=== PATIENT | female | born 1960 | race American Indian/Alaskan Native ===

== ENCOUNTER 2021-03-14 09:47 | Outpatient (CLI) | payer OTHER ==
--- NOTE | 2021-03-14 12:59 | Fluoroscopy Report ---
BARIUM ENEMA INDICATION / CLINICAL INFORMATION: COLON CANCER SCREENING TECHNIQUE: Routine double contrast barium enema was attempted. Fluoroscopy time: 2 minutes. Fluoroscopy images: None. COMPARISON: None available. FINDINGS: Accounts Payable Supervisor view demonstrates no acute abnormality. Examination was terminated prematurely due to patient d iscomfort following only a minimal amount of contrast administered via rectal tube. Signer Name: Lai Kemp MD Signed: 03/14/2021 12:55 PM Workstation Name: [id number]
== END 2021-03-14 09:48 | disposition home or self-care (01) ==
LOC: EDSEX 09:47 → FLUORO 09:47
PROVIDERS: ATTEND Internal Medicine Gastroenterology
DX: Z12.11 Encounter for screening for malignant neoplasm of colon (principal)
CPT/HCPCS: 74280

== ENCOUNTER 2021-09-23 01:12 | Emergency (ER) | payer OTHER ==
--- NOTE | 2021-09-23 02:41 | XRay Report ---
LEFT FOOT 2 VIEWS. INDICATION / CLINICAL INFORMATION: foot pain COMPARISON: Left ankle same date. FINDINGS: BONES / JOINT(S): No acute fracture or subluxation. Mild narrowing of interphalangeal joint spaces. SOFT TISSUES: No significant abnormality. ADDITIONAL FINDINGS: Bimalleolar ankle fracture better visualized on comparison study. IMPRESSION: 1. No acute findings involving the left foot. Signer Name: Curtis Almendarez II, MD Signed: 09/23/2021 2:36 AM Workstation Name: [id number]
--- NOTE | 2021-09-23 02:42 | XRay Report ---
LEFT ANKLE 3 VIEW(S) INDICATION / CLINICAL INFORMATION: lt ankle pain foot pain COMPARISON: None available. FINDINGS: BONES / JOINT(S): Acute bimalleolar fracture of the left ankle demonstrated with moderate lateral tra nslation of the talus within the tibiotalar joint. Articular surface of the talar dome appears intact . No obvious fracture of the posterior malleolus of the tibia. No significant arthritis. SOFT TISSUES: Bimalleolar soft tissue swelling. ADDITIONAL FINDINGS: None. IMPRESSION: Acute bimalleolar fracture left ankle with moderate lateral translation of the talus within the tibio talar joint. Signer Name: Curtis Almendarez II, MD Signed: 09/23/2021 2:37 AM Workstation Name: [id number]
--- NOTE | 2021-09-23 04:14 | Emergency Department Report ---
ED Lower Extremity HPI - General Chief Complaint: Extremity Injury, Lower Stated Complaint: ANKLE INJURY Source: patient, family Mode of arrival: Wheelchair Limitations: Physical Limitation - History of Present Illness Initial Comments: 61-year-old female presents to the ED via ambulance with left ankle pain after slipping and falling while walking up a flight of stairs. Patient stated that when she made to last step she slipped and fell at home. Patient has obvious swelling to the left ankle. Pedal pulses intact. Patient has splint in place applied by EMS. Patient denies any pain at present. Fall was witnessed by her . Patient is alert and oriented x3. No acute distress noted no ill appearance. MD Complaint: ankle injury Onset/Timin -: hour(s) Injury: Ankle: Left Place: home Severity scale (0 -10): 0 Improves With: immobilization Context: fall Associated Symptoms: swelling, unable to bear weight Treatments Prior to Arrival: splint - Related Data Previous Rx's Medication Instructions Recorded Last Taken Type Acetaminophen/Codeine [Tylenol 1 tab PO Q6H PRN 3 Days #12 tab 09/23/21 Unknown Rx /Codeine # 3 tab] Allergies Allergy/AdvReac Type Severity Reaction Status Date / Time No Known Allergies Allergy Verified 09/23/21 04:05 ED Review of Systems ROS: Stated complaint: ANKLE INJURY Other details as noted in HPI Constitutional: denies: chills, fever Eyes: denies: eye pain, eye discharge, vision change ENT: denies: ear pain, throat pain Respiratory: denies: cough, shortness of breath, wheezing Cardiovascular: denies: chest pain, palpitations Endocrine: no symptoms reported Gastrointestinal: denies: abdominal pain, nausea, diarrhea Genitourinary: denies: urgency, dysuria, discharge Musculoskeletal: joint swelling. denies: back pain, arthralgia Skin: denies: rash, lesions Neurological: denies: headache, weakness, paresthesias Psychiatric: denies: anxiety, depression Hematological/Lymphatic: denies: easy bleeding, easy bruising ED Past Medical Hx - Social History Smoking Status: Never Smoker - Medications Home Medications: Home Medications Medication Instructions Recorded Confirmed Last Taken Type Acetaminophen/Codeine [Tylenol 1 tab PO Q6H PRN 3 Days #12 tab 09/23/21 Unknown Rx /Codeine # 3 tab] ED Physical Exam - General Limitations: Physical Limitation General appearance: alert, in no apparent distress - Head Head exam: Present: atraumatic, normocephalic - Eye Eye exam: Present: normal appearance - ENT ENT exam: Present: mucous membranes moist - Neck Neck exam: Present: normal inspection - Respiratory Respiratory exam: Present: normal lung sounds bilaterally. Absent: respiratory distress - Cardiovascular Cardiovascular Exam: Present: regular rate, normal rhythm. Absent: systolic murmur, diastolic murmur, rubs, gallop - GI/Abdominal GI/Abdominal exam: Present: soft, normal bowel sounds - Extremities Exam Extremities exam: Present: normal inspection - Expanded Lower Extremity Exam Left Ankle exam: Present: tenderness, swelling. Absent: ecchymosis, deformity, erythema - Back Exam Back exam: Present: normal inspection - Neurological Exam Neurological exam: Present: alert, oriented X3 - Psychiatric Psychiatric exam: Present: normal affect, normal mood - Skin Skin exam: Present: warm, dry, intact, normal color. Absent: rash ED Course Vital Signs 09/23/21 09/23/21 01:30 05:49 Temperature 98.4 F Pulse Rate 72 Respiratory 20 20 Rate Blood Pressure 136/74 Blood Pressure 138/72 [Right] O2 Sat by Pulse 99 Oximetry ED Lower Extremity MDM - Radiology Data [facility] [address] [place] [address] XRay Report Signed Patient: TAWANNA MEJIA MR#: [id number] : 1960 Acct:[id number] Age/Sex: 61 / F ADM Date: 09/23/21 Loc: ED Attending Dr: Ordering Physician: KYA GRAY Date of Service: 09/23/21 Procedure(s): XR ankle 3+V LT Accession Number(s): [id number] cc: KYA GRAY Fluoro Time In Minutes: LEFT ANKLE 3 VIEW(S) INDICATION / CLINICAL INFORMATION: lt ankle pain foot pain COMPARISON: None available. FINDINGS: BONES / JOINT(S): Acute bimalleolar fracture of the left ankle demonstrated with moderate lateral translation of the talus within the tibiotalar joint. Articular surface of the talar dome appears intact. No obvious fracture of the posterior malleolus of the tibia. No significant arthritis. SOFT TISSUES: Bimalleolar soft tissue swelling. ADDITIONAL FINDINGS: None. IMPRESSION: Acute bimalleolar fracture left ankle with moderate lateral translation of the talus within the tibiotalar joint. Signer Name: Charles Batista II, MD Signed: 09/23/2021 2:37 AM Workstation Name: [id number] Transcribed By: JONAH Dictated By: CHARLES BATISTA II, MD Electronically Authenticated By: CHARLES BATISTA II, MD Signed Date/Time: 09/23/21236 DD/ 5 - Medical Decision Making 61-year-old female presents to the ED via ambulance with left ankle pain after slipping and falling while walking up a flight of stairs. Patient stated that when she made to last step she slipped and fell at home. Patient has obvious swelling to the left ankle. Pedal pulses intact. Patient has splint in place applied by EMS. Patient denies any pain at present. Fall was witnessed by her . Patient is alert and oriented x3. No acute distress noted no ill appearance. Posterior leg splint applied to the left leg. Herndon 10 mg given PO . Rechecked the patient is resting quietly quietly and comfortable and feeling better. I discussed the results of diagnostic study, my clinical impression and the plan for further treatment with the patient. Patient agrees with plan and discharge at this present time. All question addressed. I have given the patient instruction regarding a diagnosis ,expectation ,follow- up and return precaution. I explained to the patient that emergent condition may arise and to return to the ED for new worsen and any new persisting condition. I have explained the importance of following up with the primary care physician or referral physician listed below has instructed. The patient verbalized understanding of discharge instruction. Critical care attestation.: If time is entered above; I have spent that time in minutes in the direct care of this critically ill patient, excluding procedure time. ED Disposition Clinical Impression: Ankle fracture, bimalleolar, closed Qualifiers: Encounter type: initial encounter Laterality: left Qualified Code(s): S82.842A - Displaced bimalleolar fracture of left lower leg, initial encounter for closed fracture Disposition: HOME / SELF CARE / HOMELESS Is pt being admited?: No Does the pt Need Aspirin: No Condition: Stable Instructions: Nondisplaced Bimalleolar Ankle Fracture Treated With Immobilization Additional Instructions: Follow-up with orthopedic Return to the ED for any worsening symptoms Take pain medication as needed Prescriptions: Acetaminophen/Codeine [Tylenol /Codeine # 3 tab] 1 tab PO Q6H PRN 3 Days #12 tab PRN Reason: Pain , Severe (7-10) Referrals: GARRY REGAN MD [Staff Physician] - 3-5 Days
[2021-09-23] MEDS ORDERED: HYDROcodone/ACETAMINOPHEN 10-325MG TAB PO ONE (05:30)
[2021-09-23 07:07] VITALS: BP 128/74
== END 2021-09-23 05:56 | disposition home or self-care (01) ==
LOC: ED 01:12
DX: S82.842A Displaced bimalleolar fracture of left lower leg, initial encounter for closed fracture (principal); W10.8XXA Fall (on) (from) other stairs and steps, initial encounter; Y93.89 Activity, other specified; Y92.89 Other specified places as the place of occurrence of the external cause; Y99.8 Other external cause status
CPT/HCPCS: 99283

== ENCOUNTER 2021-09-27 10:07 | Day surgery (SDC) | payer OTHER ==
[~2021-09-27 10:07] MED LIST: ACETAMINOPHEN 500 MG TAB PO SCH; CELECOXIB 200 MG CAP PO NR; GABAPENTIN 300 MG CAP PO NR; LACTATED RINGERS 1,000 ML IV SCH; MIDAZOLAM 2 MG/2 ML INJ IV NR; ceFAZolin/STERILE WATER 2 GM/20 ML SYRINGE IV NR
--- NOTE | 2021-09-27 11:21 | Anesthesia Consultation ---
Anesthesia Consult and Med Hx Date of service: 09/27/21 - Airway Anesthetic Teeth Evaluation: Good ROM Head & Neck: Adequate Mental/Hyoid Distance: Adequate Mallampati Class: Class I Intubation Access Assessment: Good - Pre-Operative Health Status ASA Pre-Surgery Classification: ASA2 Proposed Anesthetic Plan: General Nerve Block: adductor + politeal - Pulmonary Hx Smoking: Yes (quit 30yrs ago) Hx Respiratory Symptoms: No - Cardiovascular System Hx Hypertension: Yes (took amlodipine this morning) Hx Heart Attack/AMI: No Hx Percutaneous Transluminal Coronary Angioplasty (PTCA): No - Central Nervous System CVA: No - Endocrine Hx Renal Disease: No Hx Liver Disease: No Hx Insulin Dependent Diabetes: No Hx Non-Insulin Dependent Diabetes: No Hx Thyroid Disease: No - Additional Comments Anesthesia Medical History Comments: No hx anesthetic complications.
--- NOTE | 2021-09-27 11:22 | Anesthesia Day of Surgery ---
Anesthesia Day of Surgery - Day of Surgery Patient Examined: Yes Patient H&P Reviewed: Yes Patient is NPO: Yes
[2021-09-27] MEDS ORDERED: BUPIVACAINE/PF (0.25%) 2.5 MG/ML 30 ML VIAL INFILTRATI ONE (11:26)
[2021-09-27] MEDS ORDERED: dexAMETHasone 4 MG/ML VIAL ONE (11:26)
[2021-09-27] MEDS ORDERED: LIDOCAINE (1%) 10 MG/1 ML VIAL 20 ML MDV ONE (11:31)
[2021-09-27] MEDS: fentaNYL 100 MCG/2 ML INJ IV PRN ×2 (11:56→12:30)
[2021-09-27] MEDS ORDERED: propofoL 200 MG/20 ML VIAL IV ONE (12:57)
[2021-09-27] MEDS ORDERED: LIDOCAINE PF 100 MG/5 ML (CARDIAC SYRINGE) IV ONE (12:57)
[2021-09-27] MEDS ORDERED: dexAMETHasone 20 MG/5 ML VIAL ONE (12:57)
[2021-09-27] MEDS ORDERED: fentaNYL 100 MCG/2 ML INJ ONE (12:57)
[2021-09-27] MEDS ORDERED: ONDANSETRON 4 MG/2 ML INJ ONE (12:57)
[2021-09-27] MEDS ORDERED: PHENYLEPHRINE/NS 1,000 MCG/10 ML SYRINGE (OR USE) IV ONE (13:28)
[2021-09-27] MEDS ORDERED: SODIUM CHLORIDE 0.9% IRR 1,500 ML BOTTLE IR ONE (13:45)
[2021-09-27] MEDS ORDERED: KETOROLAC 30 MG/1 ML INJ ONE (14:30)
--- NOTE | 2021-09-27 14:40 | Procedure Note ---
Date of procedure: 09/27/21 Pre-op diagnosis: Displaced left bimalleolar ankle fracture Post-op diagnosis: same Procedure: Open reduction internal fixation left ankle fracture Procedure The patient was brought to the OR after having a femoral nerve block in preop holding for Postop pain management. The patient was placed on the OR table in supine position following induction and intubation the patient's left lower extremity was prepped and draped in the usual sterile manner. A timeout procedure was done to identify the patient and the correct operative site. The leg was then exsanguinated followed by inflation of the pneumatic tourniquet to 300 mmHg. A lateral incision was made over the distal fibula this is taken down sharply through skin and subcutaneous the fracture site was identified and using gentle manipulation the fracture fragments were reduced into a more anatomic position next a 6-hole one third semitubular plate was applied with screws of appropriate length and AP and lateral view was obtained and showed good reduction at the fracture and placement of the hardware. Next a curvlinear incision was made over the medial malleolus is then taken down sharply through skin and subcutaneous the fracture was identified and again using gentle manipulation I was held in place by way of a bone clamp next 2 small threaded K wires were used followed by placement of our 4.0 50 mm length cannulated screws again AP and lateral views were obtained showing good reduction medially. The wound was copiously irrigated the medial and lateral incisions were closed in a standard routine fashion postoperative dressings were applied as well as a well- padded posterior mold the patient tolerated the procedure there were no complications and he was sent to postanesthesia recovery in stable condition Anesthesia: ALANAA, regional Surgeon: GARRY REGAN (Norma Talley, 1st assist) Estimated blood loss: minimal Pathology: none Condition: stable Disposition: PACU
[2021-09-27 16:17] VITALS: BP 135/83
--- NOTE | 2021-09-27 17:17 | Post Anesthesia Evaluation ---
- Post Anesthesia Evaluation Patient Participated: Yes Airway Patent: Yes Stable Respiratory Function: Yes Nausea/Vomiting: No Temp > 96.8F: Yes Pain Manageable: Yes Adequeate Hydration: Yes Anesthesia Complications: No Block Receding Appropriately: Yes
--- NOTE | 2021-09-30 10:14 | XRay Report ---
INTRAOPERATIVE FLUOROSCOPY: LEFT ANKLE INDICATION / CLINICAL INFORMATION: ORIF Left Ankle Fx. COMPARISON: 09/23/21 TECHNIQUE: Intraoperative spot images were obtained during the procedure. FINDINGS: Bimalleolar internal fixation hardware is in place with near-anatomic alignment. Fluoroscopy Time: 0.9 seconds. Fluoroscopy Images: 2. Signer Name: Corazon Jones MD Signed: 09/30/2021 10:10 AM Workstation Name: [id number]
== END 2021-09-27 17:37 | disposition home or self-care (01) ==
LOC: OR 10:07
PROVIDERS: ATTEND Orthopaedic Surgery
DX: S82.842A Displaced bimalleolar fracture of left lower leg, initial encounter for closed fracture (principal); H40.9 Unspecified glaucoma; E78.00 Pure hypercholesterolemia, unspecified; I10 Essential (primary) hypertension; Z90.710 Acquired absence of both cervix and uterus; Z79.899 Other long term (current) drug therapy; Z87.891 Personal history of nicotine dependence; Z91.81 History of falling; X58.XXXA Exposure to other specified factors, initial encounter; Y93.89 Activity, other specified; Y92.89 Other specified places as the place of occurrence of the external cause; Y99.8 Other external cause status
CPT/HCPCS: 27814; 64447; 64450; 73600; C1713; J0690; J1100; J1885; J2001; J2250; J2370; J2405; J2704; J3010; J3490; J7120; L8699; U0003

== ENCOUNTER 2021-11-25 12:05 | Outpatient (CLI) | payer OTHER ==
--- NOTE | 2021-11-25 14:11 | XRay Report ---
Left ankle 3 views INDICATION: Left ankle pain. IMPRESSION: Fixation hardware of the left ankle is intact. There is persistent fracture lucency invol ving the medial malleolus. There is mild interval healing identified within the lateral malleolus. Signer Name: Seb Desai MD Signed: 11/25/2021 2:07 PM Workstation Name: [id number]
== END 2021-11-25 12:06 | disposition home or self-care (01) ==
LOC: XRAY 12:05
PROVIDERS: ATTEND Orthopaedic Surgery
DX: S82.52XD Displaced fracture of medial malleolus of left tibia, subsequent encounter for closed fracture with routine healing (principal); X58.XXXD Exposure to other specified factors, subsequent encounter

== ENCOUNTER 2021-11-29 10:55 | Outpatient (CLI) | payer OTHER ==
--- NOTE | 2021-11-29 15:04 | Mammography Report ---
DEXA BONE DENSITY SCAN INDICATION / CLINICAL INFORMATION: OSTEOPOROSIS. 61 years Female COMPARISON: None available. LUMBAR SPINE, L1-L4: - Bone mineral density (BMD) = 0.801 g/cm2. - T-score = -2.6 - Z-score = -2.8 Change (%) since most recent prior (if available): None available. LEFT HIP, NECK : - Bone mineral density (BMD) = 0.637 g/cm2. - T-score = -2.2 - Z-score = -1.5 Change (%) since most recent prior (if available): None available. IMPRESSION: 1. WHO Classification: Osteoporosis. Fracture Risk: High. Note: 10-Year Fracture Risk (FRAX) not reported. This DEXA unit lacks FRAX functionality. BMD Reporting Guidelines (ISCD, 2015) BMD Reporting in Postmenopausal Women and in Men Age 50 and Older - T-scores are preferred. - The WHO densitometric classification is applicable. BMD Reporting in Females Prior to Menopause and in Males Younger Than Age 50 - Z-scores, not T-scores, are preferred. This is particularly important in children. - A Z-score of -2.0 or lower is defined as below the expected range for age, and a Z-score above -2.0 is within the expected range for age. - Osteoporosis cannot be diagnosed in men under age 50 on the basis of BMD alone. - The WHO diagnostic criteria may be applied to women in the menopausal transition. http://www.iscd.org/official-positions/9890-xisq-kcllqyta-positions-adult/ Signer Name: Terrell Butler MD Signed: 11/29/2021 2:59 PM Workstation Name: [email or web address]
== END 2021-11-29 10:56 | disposition home or self-care (01) ==
LOC: MAMMO 10:55
PROVIDERS: ATTEND Internal Medicine
DX: S22.49XA Multiple fractures of ribs, unspecified side, initial encounter for closed fracture (principal); S82.892A Other fracture of left lower leg, initial encounter for closed fracture; M79.89 Other specified soft tissue disorders; M81.0 Age-related osteoporosis without current pathological fracture; X58.XXXA Exposure to other specified factors, initial encounter; Y93.89 Activity, other specified; Y92.89 Other specified places as the place of occurrence of the external cause; Y99.8 Other external cause status
CPT/HCPCS: 77080

== ENCOUNTER 2022-03-25 10:42 | Outpatient (CLI) | payer OTHER ==
--- NOTE | 2022-03-25 12:22 | XRay Report ---
Left ankle, 3 views HISTORY: Left ankle pain COMPARISON: 11/25/2021. FINDINGS: Fixation hardware of the left ankle remains intact. Fracture alignment is stable. There is persistent fracture lucency at the base of the medial malleolus. No new skeletal abnormality. Circumf erential soft tissue swelling remains. Signer Name: Lai Kemp MD Signed: 03/25/2022 12:17 PM Workstation Name: [id number]
== END 2022-03-25 10:43 | disposition home or self-care (01) ==
LOC: XRAY 10:42
PROVIDERS: ATTEND Orthopaedic Surgery
DX: S82.892A Other fracture of left lower leg, initial encounter for closed fracture (principal); M79.89 Other specified soft tissue disorders; X58.XXXA Exposure to other specified factors, initial encounter; Y93.89 Activity, other specified; Y92.89 Other specified places as the place of occurrence of the external cause; Y99.8 Other external cause status